=== PATIENT | male | born 1960 | race Caucasian/White ===

== ENCOUNTER 2020-06-19 01:22 | Inpatient (IN) ==
[2020-06-19] MEDS ORDERED: Tirofiban 12.5 MG/250ML 12.5 MG/250 ML BAG ONE (01:43)
[2020-06-19] MEDS ORDERED: *HR* Midazolam HCl 2 MG/2 ML VIAL ONE (02:47)
[2020-06-19] MEDS ORDERED: *HR* FentaNYL (PF) 100 MCG/2 ML VIAL ONE (02:47)
[2020-06-19] MEDS ORDERED: Perflutren Lipid Microsphere 1.3 ML in 0.9 % Sodium Chloride 8.7 ML IVP PRN (04:01)
[2020-06-19] MEDS ORDERED: Tirofiban 12.5 MG/250ML 12.5 MG/250 ML BAG IVC SCH (04:15)
[2020-06-19] MEDS ORDERED: Nitroglycerin 0.4 MG TAB.SUBL SL PRN (07:25)
[2020-06-19] MEDS: *HR* Ticagrelor 90 MG TABLET PO SCH ×2 (09:20→20:18)
[2020-06-19] MEDS: Aspirin Enteric Coated 81 MG Tablet PO SCH (09:20)
[2020-06-19] MEDS ORDERED: *HR* Dextrose 50 % in Water (Vial) 50 ML VIAL IVP PRN (12:32)
[2020-06-19] MEDS ORDERED: Dextrose Gel 15 GM/37.5 ML TUBE PO PRN ×2 (12:32)
[2020-06-19] MEDS ORDERED: D5% in Water 1,000 ML IVC PRN (12:32)
[2020-06-19] MEDS: Insulin LISPRO 300 UNITS/3 ML VIAL SUBQ SCH (16:23)
[2020-06-19] MEDS: Potassium Chloride Elixir 20 MEQ/15 ML UDC PO SCH ×2 (16:23→20:18)
[2020-06-19] MEDS: *HR* Heparin 5,000 UNIT/ML VIAL SQ SCH (18:37)
[2020-06-20] MEDS: *HR* Heparin 5,000 UNIT/ML VIAL SQ SCH ×2 (05:38→17:35)
[2020-06-20 05:59] LABS: Basophils % 0.3 %; Eosinophils # 0.1 K/mcL (0.0-0.6); Eosinophils % 0.9 %; Hematocrit 44.5 % (37.5-50.1); Hemoglobin 14.3 g/dL (12.9-16.9); Immature Granulocytes % 0.3 % (0-4); Lymphocytes # 2.1 K/mcL (0.6-4.6); Lymphocytes % 18.3 %; Mean Corpuscular HGB Conc 32.1 g/dL (31.6-35.5); Mean Corpuscular Hemoglobin 29.6 pg (28.0-33.3); Mean Corpuscular Volume 92.1 fL (83.0-100.0); Mean Platelet Volume 10.6 fL (9.4-12.4); Monocytes # 1.2 K/mcL (0.0-1.3); Monocytes % 10.3 %; Platelet Count 176 K/mcL (140-400); Red Blood Count 4.83 M/mcL (4.19-5.50); Red Cell Distribution Width 12.8 % (11.5-14.5); Segmented Neutrophils % 69.9 %; White Blood Count 11.4 K/mcL (4.3-11.1)
[2020-06-20 06:23] LABS: BUN/Creatinine Ratio 26 (6-26); Blood Urea Nitrogen 18 mg/dL (6-20); Calcium 9.2 mg/dL (8.6-10.3); Carbon Dioxide 23 mEq/L (23-29); Chloride 103 mEq/L (98-107); Glucose 303 mg/dL (70-105); Osmolality,Calculated 291 (280-300); Potassium 3.9 mEq/L (3.5-5.1); Sodium 134 mEq/L (136-145); eGFR For African Americans > 60 (> 60); eGFR For Non-African Americans > 60 (> 60)
[2020-06-20] MEDS: *HR* Ticagrelor 90 MG TABLET PO SCH ×2 (08:36→20:06)
[2020-06-20] MEDS: Aspirin Enteric Coated 81 MG Tablet PO SCH (08:36)
[2020-06-20] MEDS: Insulin LISPRO 300 UNITS/3 ML VIAL SUBQ SCH ×3 (08:37→19:33)
[2020-06-20] MEDS: Potassium Chloride Elixir 20 MEQ/15 ML UDC PO SCH ×2 (08:37→20:06)
[2020-06-20] MEDS ORDERED: Loratadine 10 MG TABLET PO SCH (09:00)
[2020-06-20] MEDS ORDERED: (Dapagliflozin Propanediol [Farxiga] 10 MG) PO SCH (09:00)
[2020-06-20] MEDS ORDERED: *HR* Dextrose 50 % in Water (Vial) 50 ML VIAL IVP PRN (13:43)
[2020-06-20] MEDS ORDERED: Perflutren Lipid Microsphere 1.3 ML in 0.9 % Sodium Chloride 8.7 ML IVP PRN (13:43)
[2020-06-20] MEDS ORDERED: D5% in Water 1,000 ML IVC PRN (13:43)
[2020-06-20] MEDS ORDERED: Dextrose Gel 15 GM/37.5 ML TUBE PO PRN ×2 (13:43)
[2020-06-20] MEDS ORDERED: Nitroglycerin 0.4 MG TAB.SUBL SL PRN (13:43)
[2020-06-20] MEDS ORDERED: *HR* SitaGLIPtin 100 MG TABLET PO SCH ×2 (18:00)
[2020-06-20] MEDS ORDERED: NON-FORMULARY MEDICATION 1 EACH EACH (Omega-3/Dha/Epa/Fish Oil [Fish Oil 1,000 Mg Softgel] PO SCH (18:00)
[2020-06-21] MEDS: *HR* Heparin 5,000 UNIT/ML VIAL SQ SCH (05:15)
[2020-06-21] MEDS: *HR* Ticagrelor 90 MG TABLET PO SCH (08:37)
[2020-06-21] MEDS: Potassium Chloride Elixir 20 MEQ/15 ML UDC PO SCH (08:38)
[2020-06-21] MEDS: Insulin LISPRO 300 UNITS/3 ML VIAL SUBQ SCH ×2 (08:39→12:16)
[2020-06-21] MEDS ORDERED: Loratadine 10 MG TABLET PO SCH (09:00)
[2020-06-21] MEDS ORDERED: Aspirin Enteric Coated 81 MG Tablet PO SCH (09:00)
[2020-06-21] MEDS ORDERED: (Dapagliflozin Propanediol [Farxiga] 10 MG) PO SCH (09:00)
[2020-06-21 09:20] VITALS: BP 117/91
== END 2020-06-21 13:50 | disposition home or self-care (01) | DRG 247 ==
LOC: ICNU → CDU 06-20 18:57
PROVIDERS: ADMIT Internal Medicine Cardiovascular Disease; ATTEND Student in an Organized Health Care Education/Training Program